=== PATIENT | female | born 1985 | race Caucasian/White ===

== ENCOUNTER 2016-12-07 03:32 | Inpatient (IN) | payer OTHER ==
[~2016-12-07 03:32] MED LIST: FERR1TAB85 PO; PREN1TAB80 PO
[2016-12-07] MEDS ORDERED: OXYTOCIN 30 UNITS/LACT RINGERS 500 ML IV ONE (04:59)
[2016-12-07] MEDS ORDERED: RINGERS SOLUTION,LACTATED 1,000 ML IV PRN (04:59)
[2016-12-07] MEDS ORDERED: METOCLOPRAMIDE HCL 5 MG/ML 2 ML VIAL IVP PRN (05:00)
[2016-12-07] MEDS ORDERED: FentaNYL CITRATE-PF 100 MCG/2 ML VIAL IVP PRN (05:00)
[2016-12-07] MEDS ORDERED: LIDOCAINE HCL/PF 1% 30 ML VIAL INJ PRN (05:00)
[2016-12-07] MEDS ORDERED: CITRIC ACID/SODIUM CITRATE 30 ML SOLUTION UDCUP PO PRN (05:00)
[2016-12-07 05:25] VITALS: BP 112/64
[2016-12-07] MEDS ORDERED: AMPICILLIN SODIUM 2 GM/NS 100 ML IV ONE (05:30)
[2016-12-07] MEDS: RINGERS SOLUTION,LACTATED 1,000 ML IV SCH (05:40)
[2016-12-07 05:51] LABS: BASOPHILS % (AUTO) 0.2 % (0.0-2.0); EOSINOPHILS % (AUTO) 0.8 % (1.0-6.0); HEMATOCRIT 35.1 % (36-46); HEMOGLOBIN 11.8 g/dL (12.0-16.0); LYMPHOCYTES # (AUTO) 2.7 K/uL (1.0-4.8); LYMPHOCYTES % (AUTO) 30.7 % (22.0-44.0); MEAN CORPUSCULAR HEMOGLOBIN 30.2 pg (26.0-34.0); MEAN CORPUSCULAR HGB CONC 33.7 G/dL (31.0-37.0); MEAN CORPUSCULAR VOLUME 90 fL (80-100); MONOCYTES # (AUTO) 0.5 K/uL (0.1-1.0); NEUTROPHILS # (AUTO) 5.5 K/uL (1.8-7.7); NEUTROPHILS % (AUTO) 62.3 % (40.0-70.0); RED BLOOD CELL COUNT(AUTO) 3.91 MIL/uL (4.00-5.20); RED CELL DISTRIBUTION WIDTH 13.9 % (11.5-14.5); WHITE BLOOD COUNT (AUTO) 8.8 K/uL (4.5-11.0)
[2016-12-07 06:07] LABS: GLUCOSE COMMENT 2 Doctor Notified; GLUCOSE,POINT OF CARE 69 MG/DL (70-110)
[2016-12-07] MEDS ORDERED: OXYTOCIN 30 UNITS/LACT RINGERS 500 ML IV PRN (06:23)
[2016-12-07] MEDS ORDERED: LIDOCAINE HCL/PF 2% 5 ML VIAL ONE (07:57)
[2016-12-07] MEDS ORDERED: FentaNYL/BUPIV 0.125%/NS/PF 200 ML ED ONE (07:58)
[2016-12-07] MEDS ORDERED: OXYGEN THERAPY IH SCH (08:00)
[2016-12-07] MEDS ORDERED: DiphenhydrAMINE HCL 50 MG/ML VIAL IVP PRN (08:15)
[2016-12-07] MEDS ORDERED: PROMETHAZINE HCL 12.5 MG in SODIUM CHLORIDE 0.9% 50 ML IV PRN (08:15)
[2016-12-07] MEDS ORDERED: FentaNYL/BUPIV 0.125%/NS/PF 200 ML ED PRN (08:15)
[2016-12-07] MEDS ORDERED: ONDANSETRON HCL 4 MG/2 ML VIAL IVP PRN (08:15)
[2016-12-07] MEDS ORDERED: NALBUPHINE HCL 10 MG/ML VIAL IVP PRN (08:15)
[2016-12-07] MEDS: AMPICILLIN SODIUM 1 GM/NS 50 ML IV SCH (09:37)
[2016-12-07] MEDS ORDERED: RINGERS SOLUTION,LACTATED 1,000 ML IV ONE (11:37)
[2016-12-07] MEDS ORDERED: BENZOCAINE 20%/MENTHOL 56 GM SPRAY CANISTER TP PRN (11:45)
[2016-12-07] MEDS ORDERED: GLYCERIN/WITCH HAZEL LEAF 40 PADS JAR TP PRN (11:45)
[2016-12-07] MEDS ORDERED: MEASLES/MUMPS/RUBELLA VACCINE, LIVE 0.5 ML/VIAL SQ ONE (11:45)
[2016-12-07] MEDS ORDERED: OxyCODONE HCL/ACETAMINOPHEN 5-325 MG TABLET PO PRN ×2 (11:45)
[2016-12-07] MEDS: IBUPROFEN 600 MG TABLET PO PRN (13:11)
[2016-12-07] MEDS: LANOLIN 7 GM OINTMENT TP PRN (16:53)
[2016-12-07] MEDS: MAGNESIUM HYDROXIDE SUSPENSION 30 ML UDCUP PO SCH (21:19)
[2016-12-08] MEDS: IBUPROFEN 600 MG TABLET PO PRN ×2 (00:40→08:11)
[2016-12-08] MEDS: RINGERS SOLUTION,LACTATED 1,000 ML IV SCH (07:36)
[2016-12-08] MEDS: AMPICILLIN SODIUM 1 GM/NS 50 ML IV SCH (07:36)
[2016-12-08] MEDS: LANOLIN 7 GM OINTMENT TP PRN (08:11)
[2016-12-08] MEDS: MAGNESIUM HYDROXIDE SUSPENSION 30 ML UDCUP PO SCH (08:11)
[2016-12-08] MEDS ORDERED: IBUP-2070 PO (09:07)
[2016-12-08] MEDS ORDERED: DSS100 PO (09:08)
[2016-12-08] MEDS ORDERED: FERR-89 PO (09:09)
[2016-12-08] MEDS ORDERED: SENNA/DOCUSATE SODIUM 187-50 MG TABLET PO ONE (10:00)
== END 2016-12-08 11:25 | disposition home or self-care (01) | DRG 775 ==
LOC: 4S 03:32 → OBSVTOIN 03:32
PROVIDERS: ADMIT Obstetrics & Gynecology; ATTEND Obstetrics & Gynecology
PROC: 10E0XZZ Delivery of Products of Conception, External Approach (ICD-10-PCS; principal; 2016-12-07)
PROC: 0UQMXZZ Repair Vulva, External Approach (ICD-10-PCS; 2016-12-07)
PROC: 0W8NXZZ Division of Female Perineum, External Approach (ICD-10-PCS; 2016-12-07)
PROC: 3E0S3CZ (ICD-10-PCS; 2016-12-07)
PROC: 00HU33Z Insertion of Infusion Device into Spinal Canal, Percutaneous Approach (ICD-10-PCS; 2016-12-07)
PROC: 3E0134Z Introduction of Serum, Toxoid and Vaccine into Subcutaneous Tissue, Percutaneous Approach (ICD-10-PCS; 2016-12-07)
DX: O71.82 Other specified trauma to perineum and vulva (principal); Z3A.39 39 weeks gestation of pregnancy; Z37.0 Single live birth; Z23 Encounter for immunization
CPT/HCPCS: 82962; 86850; 86900; 86901; 89060; J0290; J2590; J3490; J7120

== ENCOUNTER 2018-07-29 16:10 | Inpatient (IN) | payer OTHER ==
[~2018-07-29] VITALS: Ht 170.2 cm; Wt 78.0 kg
[~2018-07-29 16:10] MED LIST changes: +DSS100 PO; +FERR-89 PO; -FERR1TAB85 PO; +IBUP-2070 PO
[2018-07-29] MEDS ORDERED: OXYTOCIN 30 UNITS/LACT RINGERS 500 ML IV ONE (16:42)
[2018-07-29] MEDS ORDERED: METHYLERGONOVINE MALEATE 0.2 MG/ML VIAL IM PRN (16:45)
[2018-07-29] MEDS ORDERED: TERBUTALINE SULFATE 1 MG/ML VIAL SQ PRN (16:45)
[2018-07-29] MEDS ORDERED: CITRIC ACID/SODIUM CITRATE 30 ML SOLUTION UDCUP PO PRN (16:45)
[2018-07-29] MEDS ORDERED: METOCLOPRAMIDE HCL 5 MG/ML 2 ML VIAL IVP PRN (16:45)
[2018-07-29] MEDS ORDERED: FentaNYL CITRATE-PF 100 MCG/2 ML VIAL IVP PRN (16:45)
[2018-07-29 16:52] VITALS: BP 109/67
[2018-07-29] MEDS ORDERED: AMPICILLIN SODIUM 2 GM/NS 100 ML IV ONE (17:00)
[2018-07-29 17:24] LABS: BASOPHILS % (AUTO) 0.5 % (0.0-2.0); EOSINOPHILS % (AUTO) 0.5 % (1.0-6.0); HEMATOCRIT 33.9 % (36-46); HEMOGLOBIN 11.4 g/dL (12.0-16.0); LYMPHOCYTES # (AUTO) 2.4 K/uL (1.0-4.8); LYMPHOCYTES % (AUTO) 29.4 % (22.0-44.0); MEAN CORPUSCULAR HEMOGLOBIN 30.3 pg (26.0-34.0); MEAN CORPUSCULAR HGB CONC 33.5 G/dL (31.0-37.0); MEAN CORPUSCULAR VOLUME 90 fL (80-100); MONOCYTES # (AUTO) 0.5 K/uL (0.1-1.0); MONOCYTES % (AUTO) 6.2 % (2.0-9.0); NEUTROPHILS # (AUTO) 5.2 K/uL (1.8-7.7); NEUTROPHILS % (AUTO) 63.4 % (40.0-70.0); PLATELET COUNT (AUTO)-OB 260 K/uL (150-450); RED BLOOD CELL COUNT(AUTO) 3.76 MIL/uL (4.00-5.20); RED CELL DISTRIBUTION WIDTH 13.5 % (11.5-14.5)
[2018-07-29] MEDS: RINGERS SOLUTION,LACTATED 1,000 ML IV SCH (18:00)
[2018-07-29] MEDS ORDERED: OXYTOCIN 30 UNITS/LACT RINGERS 500 ML IV PRN (18:26)
[2018-07-29] MEDS ORDERED: OXYGEN THERAPY IH SCH (20:00)
[2018-07-29] MEDS: AMPICILLIN SODIUM 1 GM/NS 50 ML IV SCH (21:59)
[2018-07-30] MEDS: RINGERS SOLUTION,LACTATED 1,000 ML IV SCH (03:30)
[2018-07-30] MEDS: AMPICILLIN SODIUM 1 GM/NS 50 ML IV SCH ×2 (03:31→06:58)
[2018-07-30] MEDS ORDERED: ROPIVACAINE HCL/PF 0.2% 100 ML ED ONE (06:52)
[2018-07-30] MEDS: RINGERS SOLUTION,LACTATED 1,000 ML IV PRN ×2 (06:58→07:43)
[2018-07-30] MEDS ORDERED: ROPIVACAINE HCL/PF 0.2% 100 ML ED PRN (08:15)
[2018-07-30] MEDS ORDERED: MINERAL OIL 30 ML UDCUP VG ONE (08:15)
[2018-07-30] MEDS ORDERED: ONDANSETRON HCL 4 MG/2 ML VIAL IVP PRN (08:15)
[2018-07-30] MEDS ORDERED: DiphenhydrAMINE HCL 50 MG/ML VIAL IVP PRN (08:15)
[2018-07-30] MEDS ORDERED: GLYCERIN/WITCH HAZEL LEAF 40 PADS JAR TP PRN (10:30)
[2018-07-30] MEDS ORDERED: LIDOCAINE/PF 1% 30 ML VIAL INJ PRN (10:30)
[2018-07-30] MEDS ORDERED: LANOLIN 7 GM OINTMENT TP PRN (10:30)
[2018-07-30] MEDS ORDERED: OXYTOCIN 30 UNITS/LACT RINGERS 500 ML IV ONE (10:30)
[2018-07-30] MEDS ORDERED: OxyCODONE HCL/ACETAMINOPHEN 5-325 MG TABLET PO PRN (10:30)
[2018-07-30] MEDS: BENZOCAINE 20%/MENTHOL 56 GM SPRAY CANISTER TP PRN ×2 (10:55→15:46)
[2018-07-30] MEDS: IBUPROFEN 800 MG TABLET PO PRN ×2 (10:55→17:24)
[2018-07-30] MEDS: MAGNESIUM HYDROXIDE SUSPENSION 30 ML UDCUP PO PRN (19:32)
[2018-07-30] MEDS: OxyCODONE HCL/ACETAMINOPHEN 5-325 MG TABLET PO PRN (19:32)
[2018-07-31] MEDS: OxyCODONE HCL/ACETAMINOPHEN 5-325 MG TABLET PO PRN ×2 (05:17→08:57)
[2018-07-31] MEDS: IBUPROFEN 800 MG TABLET PO PRN (05:17)
[2018-07-31 06:50] LABS: BASOPHILS % (AUTO) 0.3 % (0.0-2.0); EOSINOPHILS % (AUTO) 1.3 % (1.0-6.0); LYMPHOCYTES # (AUTO) 3.1 K/uL (1.0-4.8); LYMPHOCYTES % (AUTO) 31.8 % (22.0-44.0); MEAN CORPUSCULAR HEMOGLOBIN 30.4 pg (26.0-34.0); MEAN CORPUSCULAR HGB CONC 33.4 G/dL (31.0-37.0); MEAN CORPUSCULAR VOLUME 91 fL (80-100); MONOCYTES # (AUTO) 0.6 K/uL (0.1-1.0); MONOCYTES % (AUTO) 6.6 % (2.0-9.0); NEUTROPHILS # (AUTO) 5.9 K/uL (1.8-7.7); PLATELET COUNT (AUTO)-OB 235 K/uL (150-450); RED BLOOD CELL COUNT(AUTO) 3.62 MIL/uL (4.00-5.20); RED CELL DISTRIBUTION WIDTH 13.6 % (11.5-14.5)
[2018-07-31] MEDS: MAGNESIUM HYDROXIDE SUSPENSION 30 ML UDCUP PO PRN (08:40)
== END 2018-07-31 13:25 | disposition home or self-care (01) | DRG 807 ==
LOC: OBSVTOIN 16:10 → 4S 16:10
PROVIDERS: ADMIT Obstetrics & Gynecology; ATTEND Obstetrics & Gynecology
PROC: 10E0XZZ Delivery of Products of Conception, External Approach (ICD-10-PCS; principal; 2018-07-30)
PROC: 0KQM0ZZ Repair Perineum Muscle, Open Approach (ICD-10-PCS; 2018-07-30)
PROC: 3E0R3BZ Introduction of Anesthetic Agent into Spinal Canal, Percutaneous Approach (ICD-10-PCS; 2018-07-30)
PROC: 00HU33Z Insertion of Infusion Device into Spinal Canal, Percutaneous Approach (ICD-10-PCS; 2018-07-30)
PROC: 10907ZC Drainage of Amniotic Fluid, Therapeutic from Products of Conception, Via Natural or Artificial Opening (ICD-10-PCS; 2018-07-30)
DX: O98.82 Other maternal infectious and parasitic diseases complicating childbirth (principal); Z37.0 Single live birth; O70.1 Second degree perineal laceration during delivery; Z3A.39 39 weeks gestation of pregnancy
CPT/HCPCS: 86850; 86900; 86901; J0290; J2590; J2795; J7120